=== PATIENT | female | born 1960 | race American Indian/Alaskan Native ===

== ENCOUNTER 2018-04-28 18:08 | Emergency (ER) | payer MEDICARE, OTHER ==
[2018-04-28] MEDS ORDERED: SOLU-Medrol IV ONE (18:57)
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
[2018-04-28] MEDS ORDERED: TYLENOL PO ONE (22:05)
[2018-04-28 23:00] VITALS: BP 90/53
== END 2018-04-28 22:35 | disposition home or self-care (01) ==
LOC: ED 18:08
DX: T78.40XA Allergy, unspecified, initial encounter (principal); Z88.5 Allergy status to narcotic agent; Z88.1 Allergy status to other antibiotic agents; Z91.041 Radiographic dye allergy status; Z91.040 Latex allergy status; Z91.013 Allergy to seafood; Y92.89 Other specified places as the place of occurrence of the external cause
CPT/HCPCS: 96374; 99283; J2930